=== PATIENT | female | born 1960 | race Hispanic/Latino ===

== ENCOUNTER 2021-10-26 14:00 | Emergency (ER) | payer MEDICARE ==
--- NOTE | 2021-10-26 14:45 | Emergency Department Report ---
<ADDI CARDOZA - Last Filed: 10/26/21 14:41> ED General Adult HPI - General Chief complaint: Anxiety Stated complaint: ANXIETY/MEDICATION REFILL Time Seen by Provider: 10/26/21 14:37 Source: patient, EMS Mode of arrival: Stretcher Limitations: No Limitations - History of Present Illness Initial comments: 61 YO COMES TO ER VIA [facility] SHE TELLS ME SHE SHOULD HAVE WENT [place] BECAUSE SHE WALKED OUT IN TRAFFIC. SHE ADDS SHE MADE A MISTAKE NOT TRUSTING GOD. PT THEN YELLS OUT SHE STATES SHE NEEDS SOMETHING FOR HER NERVES POOR INFORMANT DISHEAVELED DRAGGING A BLANKET - Related Data Previous Rx's Medication Instructions Recorded Last Taken Type Azithromycin [Zithromax TAB] 250 mg PO QDAY #6 tablet 04/30/15 Unknown Rx Prednisone [predniSONE 10 mg 10 mg PO .TAPER #1 tab.ds.pk 04/30/15 Unknown Rx (6-Day Pack, 21 Tabs)] guaiFENesin/CODEINE [Robitussin AC] 5 ml PO TID #90 ml 04/30/15 Unknown Rx Allergies Allergy/AdvReac Type Severity Reaction Status Date / Time Sulfa (Sulfonamide AdvReac Hives Verified 10/27/21 08:31 Antibiotics) ED Review of Systems Comment: All other systems reviewed and negative ED Past Medical Hx - Past Medical History Previous Medical History?: Yes Hx Hypertension: Yes Hx Arthritis: Yes (LEFT SHOULDER) Hx Psychiatric Treatment: Yes (DEPRESSION) - Surgical History Past Surgical History?: Yes - Family History Family history: no significant - Social History Smoking Status: Former Smoker Substance Use Type: None - Medications Home Medications: Home Medications Medication Instructions Recorded Confirmed Last Taken Type Azithromycin [Zithromax TAB] 250 mg PO QDAY #6 tablet 04/30/15 Unknown Rx Prednisone [predniSONE 10 mg 10 mg PO .TAPER #1 tab.ds.pk 04/30/15 Unknown Rx (6-Day Pack, 21 Tabs)] guaiFENesin/CODEINE [Robitussin AC] 5 ml PO TID #90 ml 04/30/15 Unknown Rx ED Physical Exam - General Limitations: No Limitations General appearance: alert, in no apparent distress - Head Head exam: Present: atraumatic, normocephalic - Eye Eye exam: Present: normal appearance - ENT ENT exam: Present: mucous membranes moist - Neck Neck exam: Present: normal inspection - Respiratory Respiratory exam: Present: normal lung sounds bilaterally. Absent: respiratory distress - Cardiovascular Cardiovascular Exam: Present: regular rate, normal rhythm. Absent: systolic murmur, diastolic murmur, rubs, gallop - GI/Abdominal GI/Abdominal exam: Present: soft, normal bowel sounds - Extremities Exam Extremities exam: Present: normal inspection - Back Exam Back exam: Present: normal inspection - Neurological Exam Neurological exam: Present: alert - Skin Skin exam: Present: warm, dry, intact, normal color. Absent: rash ED Medical Decision Making - Medical Decision Making TO ER FOR MHE EVAL ED Disposition Clinical Impression: Psychoses Disposition: 01 HOME / SELF CARE / HOMELESS Is pt being admited?: No Does the pt Need Aspirin: No Condition: Stable Referrals: PRIMARY CARE,MD [Primary Care Provider] - 3-5 Days Time of Disposition: 14:45 <SERVANDO KERR - Last Filed: 10/27/21 16:21> ED General Adult HPI - General PUI?: No ED Review of Systems ROS: Stated complaint: ANXIETY/MEDICATION REFILL Other details as noted in HPI ED Course Vital Signs 10/26/21 10/27/21 10/27/21 14:08 10:09 15:29 Temperature 98.4 F 98.8 F Pulse Rate 77 74 Respiratory 18 20 Rate Blood Pressure 150/100 139/74 [Left] O2 Sat by Pulse 98 99 97 Oximetry ED Medical Decision Making - Lab Data Result diagrams: 10/26/21 14:48 10/26/21 14:48 - Medical Decision Making Patient was managed independently by the [facility] level below , I was available for consult but i wasn't directly involved in the care of this patient Critical care attestation.: If time is entered above; I have spent that time in minutes in the direct care of this critically ill patient, excluding procedure time. ED Disposition Is pt being admited?: No Does the pt Need Aspirin: No
[2021-10-26 15:11] LABS: Basophils # (Auto) 0.1 K/mm3 (0.0-0.1); Basophils % (Auto) 0.7 % (0.0-1.8); Eosinophils % (Auto) 0.3 % (0.0-4.3); Hematocrit 34.8 % (30.3-42.9); Hemoglobin 11.6 gm/dl (10.1-14.3); Lymphocytes # (Auto) 1.3 K/mm3 (1.2-5.4); Lymphocytes % (Auto) 7.9 % (13.4-35.0); Mean Corpuscular HGB Conc 33 % (30-34); Mean Corpuscular Volume 84 fl (79-97); Monocytes # (Auto) 1.1 K/mm3 (0.0-0.8); Monocytes % (Auto) 6.8 % (0.0-7.3); Platelet Count 385 K/mm3 (140-440); Red Blood Count 4.12 M/mm3 (3.65-5.03); Red Cell Distribution Width 13.7 % (13.2-15.2)
[2021-10-26 15:30] LABS: Alanine Aminotransferase 18 units/L (7-56); Albumin 4.5 g/dL (3.9-5); Blood Urea Nitrogen 10 mg/dL (7-17); Hemolysis Index 9
[2021-10-26 15:36] LABS: BUN/Creatinine Ratio 20
[2021-10-27] MEDS ORDERED: POTASSIUM CHLORIDE ER 20 MEQ TAB PO ONE (09:07)
--- NOTE | 2021-10-27 09:16 | Emergency Department Report ---
ED Psych HPI - General Chief Complaint: Anxiety Stated Complaint: ANXIETY/MEDICATION REFILL Time Seen by Provider: 10/26/21 14:37 Source: patient, EMS Mode of arrival: Stretcher - History of Present Illness Initial Comments: Patient is a 61-year-old female presenting to ED for psychiatric evaluation. States she was here visiting family from [facility] and apparently lost her wal let. States she is out of all of her medications. She appears to be extremely anxious and worries about multiple things excessively. Also states she feels as if people are hurting her. When asked to go into detail she simply states "I do not know ". - Related Data Previous Rx's Medication Instructions Recorded Last Taken Type Azithromycin [Zithromax TAB] 250 mg PO QDAY #6 tablet 04/30/15 Unknown Rx Prednisone [predniSONE 10 mg 10 mg PO .TAPER #1 tab.ds.pk 04/30/15 Unknown Rx (6-Day Pack, 21 Tabs)] guaiFENesin/CODEINE [Robitussin AC] 5 ml PO TID #90 ml 04/30/15 Unknown Rx Allergies Allergy/AdvReac Type Severity Reaction Status Date / Time Sulfa (Sulfonamide AdvReac Hives Verified 10/27/21 08:31 Antibiotics) ED Review of Systems ROS: Stated complaint: ANXIETY/MEDICATION REFILL Other details as noted in HPI Constitutional: denies: chills, fever Respiratory: denies: cough, shortness of breath, wheezing Cardiovascular: denies: chest pain, palpitations Gastrointestinal: denies: abdominal pain, nausea, diarrhea Musculoskeletal: denies: back pain, joint swelling, arthralgia Skin: rash Neurological: denies: headache, weakness, paresthesias Psychiatric: anxiety, other (Delusions) ED Past Medical Hx - Past Medical History Previous Medical History?: Yes Hx Hypertension: Yes Hx Arthritis: Yes (LEFT SHOULDER) Hx Psychiatric Treatment: Yes (DEPRESSION) - Surgical History Past Surgical History?: Yes - Social History Smoking Status: Former Smoker Substance Use Type: None - Medications Home Medications: Home Medications Medication Instructions Recorded Confirmed Last Taken Type Azithromycin [Zithromax TAB] 250 mg PO QDAY #6 tablet 04/30/15 Unknown Rx Prednisone [predniSONE 10 mg 10 mg PO .TAPER #1 tab.ds.pk 04/30/15 Unknown Rx (6-Day Pack, 21 Tabs)] guaiFENesin/CODEINE [Robitussin AC] 5 ml PO TID #90 ml 04/30/15 Unknown Rx ED Physical Exam - General Limitations: No Limitations General appearance: alert, in no apparent distress - Head Head exam: Present: atraumatic, normocephalic - Respiratory Respiratory exam: Present: normal lung sounds bilaterally. Absent: respiratory distress - Cardiovascular Cardiovascular Exam: Present: regular rate, normal rhythm, normal heart sounds - GI/Abdominal GI/Abdominal exam: Present: soft. Absent: distended, tenderness - Neurological Exam Neurological exam: Present: alert, oriented X3, CN II-XII intact - Psychiatric Psychiatric exam: Present: anxious. Absent: homicidal ideation, suicidal ideation - Skin Skin exam: Present: warm, dry, intact, normal color ED Course Vital Signs 10/26/21 14:08 Temperature 98.4 F Pulse Rate 77 Respiratory 18 Rate Blood Pressure 150/100 [Left] O2 Sat by Pulse 98 Oximetry ED Medical Decision Making - Lab Data Result diagrams: 10/26/21 14:48 10/26/21 14:48 Critical care attestation.: If time is entered above; I have spent that time in minutes in the direct care of this critically ill patient, excluding procedure time. ED Disposition Disposition: 30 STILL A PATIENT Condition: Stable
[2021-10-27 14:26] LABS: Bilirubin,Urine Negative (Negative); Color,Urine Yellow (Yellow)
[2021-10-27 14:27] LABS: Blood,Urine 1+ (Negative)
[2021-10-27 14:34] LABS: Mucus,Urine Few /HPF
[2021-10-27 21:39] VITALS: BP 173/96
--- NOTE | 2021-10-28 11:06 | Emergency Department Report ---
Blank Doc - Documentation Documentation: No new events overnight awaiting disposition
== END 2021-10-28 16:51 | disposition home or self-care (01) ==
LOC: ED 14:00
DX: U07.1 COVID-19 (principal); F29 Unspecified psychosis not due to a substance or known physiological condition; F41.9 Anxiety disorder, unspecified; I10 Essential (primary) hypertension; M19.90 Unspecified osteoarthritis, unspecified site; E11.9 Type 2 diabetes mellitus without complications; Z76.0 Encounter for issue of repeat prescription; Z88.2 Allergy status to sulfonamides; Z79.899 Other long term (current) drug therapy
CPT/HCPCS: 36415; 80053; 81001; 84443; 85025; 99284; U0003; 80320; G0480

== ENCOUNTER 2021-10-27 08:14 | Emergency (ER) | payer MEDICARE ==
[2021-10-27 10:49] LABS: Basophils % (Auto) 0.5 % (0.0-1.8); Eosinophils % (Auto) 0.2 % (0.0-4.3); Hematocrit 33.9 % (30.3-42.9); Hemoglobin 11.5 gm/dl (10.1-14.3); Lymphocytes % (Auto) 10.5 % (13.4-35.0); Mean Corpuscular HGB Conc 34 % (30-34); Mean Corpuscular Volume 84 fl (79-97); Monocytes # (Auto) 0.5 K/mm3 (0.0-0.8); Monocytes % (Auto) 5.1 % (0.0-7.3); Platelet Count 380 K/mm3 (140-440); Red Blood Count 4.02 M/mm3 (3.65-5.03); Red Cell Distribution Width 13.6 % (13.2-15.2)
[2021-10-27 11:08] LABS: Alanine Aminotransferase 18 units/L (7-56); Albumin 4.7 g/dL (3.9-5); Blood Urea Nitrogen 10 mg/dL (7-17); Calcium 9.4 mg/dL (8.4-10.2); Hemolysis Index 4
[2021-10-27 11:15] LABS: BUN/Creatinine Ratio 17
[2021-10-27 11:44] LABS: Mucus,Urine FEW /HPF
[2021-10-27 11:55] LABS: Bilirubin,Urine Negative (Negative); Blood,Urine 1+ (Negative); Color,Urine Yellow (Yellow)
[2021-10-27 12:02] LABS: Amphetamine Screen,Urine Negative; Benzodiazepines Screen,Urine Negative; Cannabinoid Screen,Urine Negative; Cocaine Screen,Urine Negative; Methadone Screen,Urine Negative; Opiate Screen,Urine Negative
--- NOTE | 2021-10-27 12:25 | Consultation ---
History of Present Illness - Reason for Consult Consult date: 10/27/21 Reason for consult: anxiety - History of Present Psychiatric Illness The patient was seen today. She is a/o x 2. She is a poor historian with poor insight. It is difficult to follow that patient. She is unable to give any insight into her history or what's currently going on with her. The patient's thoughts are disorganized, and she is delusional. The patient says she feels confused and like she's not thinking straight. The patient says she's trying to get back to [place]. I ask about her family, she says "I don't know what happened." She then says, "you want me to really tell you what happened. I believe all my family got killed in a war." She denies SI/HI. She denies hallucinations at present, but states "I was hearing them a lot." PAST PSYCHIATRIC HISTORY: Unable to obtain PAST MEDICAL HISTORY: None reported Family Psychiatric History: None reported SOCIAL HISTORY Marital Status: Single Living Arrangements: homeless Employment Status: Disabled Access to guns/weapons: Denies Education: History of Abuse: Denies Legal History: Murder REVIEW OF SYSTEMS COVID + MENTAL STATUS General Appearance and Behavior: age appropriate, good eye contact, cooperative, anxious Cooperation: Cooperative Psychomotor Behavior: within normal limits Mood: okay Affect and affective range: Congruent with stated mood, tearful Thought Process: disorganized, impaired Thought Content: delusions Speech: rambling Suicidal Ideation: Yes Homicidal Ideation: Denies HI Hallucinations: Denies Delusions: Yes Impulse Control: Limited Insight and Judgment: Poor Memory: Poor Attention: distracted Orientation: Confused Assessment Delusional Disorder Treatment Plan 1013 Olanzapine 5mg po daily Trazodone 50mg po qhs Medical: Per primary Sitter: defer to primary Disposition: Recommend acute psychiatric inpatient treatment Will follow. Thanks Case staffed with Dr. Price Medications and Allergies Allergies Allergy/AdvReac Type Severity Reaction Status Date / Time Sulfa (Sulfonamide AdvReac Hives Verified 10/27/21 08:31 Antibiotics) Home Medications Medication Instructions Recorded Confirmed Last Taken Type Azithromycin [Zithromax TAB] 250 mg PO QDAY #6 tablet 04/30/15 Unknown Rx Prednisone [predniSONE 10 mg 10 mg PO .TAPER #1 tab.ds.pk 04/30/15 Unknown Rx (6-Day Pack, 21 Tabs)] guaiFENesin/CODEINE [Robitussin AC] 5 ml PO TID #90 ml 04/30/15 Unknown Rx Results Result Diagrams: 10/27/21 10:08 10/27/21 10:08 Abnormal lab results 10/27/21 10/27/21 10/27/21 Range/Units 10:08 10:08 10:08 Lymph % (Auto) 10.5 L (13.4-35.0) % Lymph # (Auto) 1.0 L (1.2-5.4) K/mm3 Seg Neutrophils % 83.7 H (40.0-70.0) % Seg Neutrophils # 8.2 H (1.8-7.7) K/mm3 Potassium 3.4 L (3.6-5.0) mmol/L Glucose 173 H (65-100) mg/dL Urine WBC (Auto) (0.0-6.0) /HPF Salicylates < 0.3 L (2.8-20.0) mg/dL Acetaminophen (10.0-30.0) ug/mL 10/27/21 10/27/21 Range/Units 10:08 11:11 Lymph % (Auto) (13.4-35.0) % Lymph # (Auto) (1.2-5.4) K/mm3 Seg Neutrophils % (40.0-70.0) % Seg Neutrophils # (1.8-7.7) K/mm3 Potassium (3.6-5.0) mmol/L Glucose (65-100) mg/dL Urine WBC (Auto) 37.0 H (0.0-6.0) /HPF Salicylates (2.8-20.0) mg/dL Acetaminophen 5.0 L (10.0-30.0) ug/mL All other labs normal.
[2021-10-27] MEDS ORDERED: traZODone 50 MG TAB PO SCH (22:00)
[2021-10-28 03:46] VITALS: BP 134/80
--- NOTE | 2021-10-28 11:06 | Emergency Department Report ---
Blank Doc - Documentation Documentation: No new events overnight awaiting disposition
--- NOTE | 2021-10-28 14:17 | Progress Note ---
Subjective - Reason for Consult Consult date: 10/28/21 Reason for consult: Mental health evaluation - Chief Complaint Chief complaint: The patient was seen today. She reports doing well " I feel much better." She denies any current suicidal/homicidal ideation and denies hallucinations. REVIEW OF SYSTEMS COVID + MENTAL STATUS General Appearance and Behavior: age appropriate, good eye contact, cooperative, anxious Cooperation: Cooperative Psychomotor Behavior: within normal limits Mood: okay Affect and affective range: Congruent with stated mood, tearful Thought Process: goal directed Thought Content: reality oriented Speech: normal Suicidal Ideation: Denies Homicidal Ideation: Denies HI Hallucinations: Denies Delusions: None Impulse Control: Limited Insight and Judgment: Limited Memory: Poor Attention: Attentive Orientation: Alert and oriented Assessment Delusional Disorder Treatment Plan DC 1013 Olanzapine 5mg po daily Trazodone 50mg po qhs Medical: Per primary Sitter: defer to primary Disposition:Do not recommend acute psychiatric inpatient treatment. [facility] will provide patient with psychiatric outpatient resources. Will sign off. Thanks Case staffed with Dr. Price Medications and Allergies Mental Status Exam - Vital signs Last Vital Signs Temp 98.2 F 10/28/21 03:46 Pulse 70 10/28/21 03:46 Resp 16 10/28/21 03:46 BP 134/80 10/28/21 03:46 Pulse Ox 97 10/28/21 10:57
== END 2021-10-28 16:49 | disposition home or self-care (01) ==
LOC: ED 08:14
DX: Z13.30 Encounter for screening examination for mental health and behavioral disorders, unspecified (principal)
CPT/HCPCS: 36415; 80053; 80307; 80320; 81001; 84443; 85025; 87086; 99284; G0480